=== PATIENT | female | born 1990 | race Caucasian/White ===

== ENCOUNTER 2018-01-05 16:01 | Emergency (ER) | payer OTHER ==
[~2018-01-05] VITALS: Ht 167.6 cm; Wt 87.7 kg
[2018-01-05 16:29] VITALS: BP 115/64
[2018-01-05] MEDS ORDERED: PEN-VEE K,VEET500 MG PO (16:56)
[2018-01-05] MEDS ORDERED: TRAMADOL HCL50 MG PO (16:56)
== END 2018-01-05 17:23 | disposition home or self-care (01) ==
LOC: EME 16:01
DX: K08.89 Other specified disorders of teeth and supporting structures (principal); F17.200 Nicotine dependence, unspecified, uncomplicated
CPT/HCPCS: 99281; 99283